=== PATIENT | male | born 1960 | race Caucasian/White ===

== ENCOUNTER 2021-06-17 20:35 | Observation (INO) ==
[2021-06-17 21:48] LABS: ABS Eosinophils 0.1 10^3/ul (0-0.6); ABS Lymphocytes 1.5 10^3/ul (1.0-4.8); ABS Monocytes 0.5 10^3/ul (0-0.8); Eosinophil % 0.9 %; Hematocrit 44 % (42-52); Lymphocyte % 21.3 %; Mean Corpuscular HGB Conc 34 g/dL (31-36); Mean Corpuscular Hemoglobin 30 pg (27-31); Mean Corpuscular Volume 88 fL (80-94); Mean Platelet Volume 9.1 fL (7.4-10.4); Platelet Count 197 10^3/uL (150-450); Red Blood Count 4.99 10^6 /uL (4.18-5.48); Red Cell Distribution Width 13 % (10-15); White Blood Count 7.2 10^3/uL (3.5-10.8)
[2021-06-17 22:32] LABS: Albumin 4.7 g/dL (3.2-5.2); Calcium 9.6 mg/dL (8.6-10.3); Globulin 2.4 g/dL (2-4); Potassium 3.7 mmol/L (3.5-5.0); Total Bilirubin 0.4 mg/dL (0.2-1.0); Total Protein 7.1 g/dL (6.4-8.9); eGFR CKD-EPI 55.2 (>60)
[2021-06-17 23:16] LABS: High Sensitivity Troponin 1 Hr 5 pg/mL (<20)
[2021-06-18] MEDS ORDERED: Lactated Ringers 1000 ml BAG 1,000 ML IV ONE (00:36)
[2021-06-18 00:42] LABS: Magnesium 1.8 mg/dL (1.9-2.7)
[2021-06-18] MEDS ORDERED: Magnesium Sulfate 2 gm BAG 2 GM/50 ML BAG IVPB ONE (00:55)
[2021-06-18 01:11] LABS: TSH Ultra Thyroid Stim Horm 1.38 mcIU/mL (0.34-5.60)
[2021-06-18 07:30] LABS: Potassium 3.6 mmol/L (3.5-5.0); eGFR CKD-EPI 74.4 (>60)
[2021-06-18 21:20] VITALS: BP 149/86
== END 2021-06-18 15:45 | disposition home or self-care (01) ==
LOC: ED 20:35 → EDHOLD 20:35 → SUATTDRO 06-18 01:27 → MEDTELE 06-18 03:41
PROVIDERS: ADMIT Internal Medicine; ATTEND Internal Medicine